=== PATIENT | female | born 1940 | race Caucasian/White ===

== ENCOUNTER 2017-01-16 13:07 | Emergency (ER) | payer MEDICARE, BC ==
[2017-01-16 13:35] VITALS: BP 163/65
--- NOTE | 2017-01-17 07:46 | ER ---
Date of Service: 01/16/2017 SUBJECTIVE: Ms. He presents to the emergency room following a fall. The patient states that she was working in her flower bed when she fell striking the right parietal portion of her head on a rock. The patient states that she did not have a loss of consciousness during this event. The patient states that she is not experiencing any nausea or vomiting. She also denies any injury other than what is isolated to her head. She also does complain of some mild midline cervical spinal pain. PAST MEDICAL HISTORY: 1. Depression. 2. Anxiety. 3. Hypertension. 4. Dyslipidemia. MEDICATIONS: 1. Effexor XR. 2. Diovan/HCTZ. 3. Aspirin. ALLERGIES: 1. TRISHA inhibitors. 2. Adhesives. 3. Cefadroxil. 4. Omnicef. 5. Clarithromycin. 6. Clindamycin. 7. Tricor. 8. Gentamicin. 9. Ibuprofen. 10.Metronidazole. 11.Propoxyphene. 12.Sulfa. 13.Simvastatin. REVIEW OF SYSTEMS: General: No fever or chills. HEENT: Please see history of present illness. Respiratory: No shortness of breath. Cardiac: Denies any substernal chest pain. Abdomen: No abdominal trauma. No nausea, vomiting or diarrhea. Musculoskeletal: No myalgias, arthralgias or extremity trauma. Again, she does complain of some midline cervical spinal pain post fall. NEUROLOGIC: No fainting, blackouts, or lightheadedness. No vision issues. No numbness or tingling in her extremities. PHYSICAL EXAMINATION: General: This is a 76-year-old female patient, who is in no acute distress. Vital Signs: Blood pressure is 163/65, pulse rate is 88, temperature is 36.7, and respiratory rate is 20. Skin: Warm, pink, and dry. HEENT: Head is normocephalic. She does have a several centimeter in diameter contusion/superficial abrasion to her right parietal area of her head. There is no obvious gross bony deformity underlying the injury. There is no crepitus or deformity noted. No head or facial trauma noted. Chest and Abdomen: No chest or abdominal trauma noted. SPINE: She does complain again of some midline cervical spinal pain on palpation. There are no step-offs or deformity noted. No obvious crepitus noted. Neurovascular, circulation, sensation, and motor function are all within normal limits in distal portion of her extremities. Neurologic: II through XII are intact. The patient's speech is fluent. Her gait is within normal limits. RADIOGRAPHIC DATA: CT scan of the patient's brain and C-spine were obtained and both examinations were negative for acute pathology. ASSESSMENT: 1. Closed head injury, status post fall. 2. Cervical spinal sprain. PLAN: The patient will be discharged. Tylenol for discomfort. The patient was advised to ice her head for 10 to 15 minutes every 1 to 2 hours. All questions were answered. MWK: 01/16/2017 18:27:16 MODL: 01/16/2017 22:20:43 /[id number]
== END 2017-01-16 15:25 | disposition home or self-care (01) ==
LOC: VM.ED 13:07
DX: S09.90XA Unspecified injury of head, initial encounter (principal); S16.1XXA Strain of muscle, fascia and tendon at neck level, initial encounter; F41.8 Other specified anxiety disorders; I10 Essential (primary) hypertension; E78.5 Hyperlipidemia, unspecified; Z88.1 Allergy status to other antibiotic agents; Z88.2 Allergy status to sulfonamides; Z88.6 Allergy status to analgesic agent; Z88.8 Allergy status to other drugs, medicaments and biological substances; W06.XXXA Fall from bed, initial encounter
CPT/HCPCS: 70450; 72125; 99284; 99284-GF

== ENCOUNTER 2018-02-17 22:22 | Emergency (ER) | payer MEDICARE, BC ==
--- NOTE | 2018-02-17 23:38 | EDM.PDOC ---
ED HPI GENERAL MEDICAL PROBLEM - General Chief Complaint: Head Injury Stated Complaint: fall on head, knee Time Seen by Provider: 02/17/18 22:30 Source of Information: Reports: Patient History Limitations: Reports: No Limitations - History of Present Illness INITIAL COMMENTS - FREE TEXT/NARRATIVE: Patient was in her garden weeding when she lost her balance falling forward. She hit the front of her head and landed on her left knee. She does have a small cut in the middle of her forehead as well as a skin tear to the left hand. She did not lose consciousness and remembers the entire event. There is complaint of left knee pain. Onset: Today, Sudden Duration: Intermittent Location: Reports: Head, Lower Extremity, Left - Related Data Allergies Allergy/AdvReac Type Severity Reaction Status Date / Time TRISHA Inhibitors Allergy Cough Verified 01/16/17 13:28 adhesive Allergy Cannot Verified 01/16/17 13:28 Remember cefadroxil [Cefadroxil] Allergy Cannot Verified 01/16/17 13:28 Remember cefdinir [From Omnicef] Allergy Cannot Verified 01/16/17 13:28 Remember clarithromycin Allergy Cannot Verified 01/16/17 13:28 Remember clindamycin Allergy Cannot Verified 01/16/17 13:28 Remember fenofibrate nanocrystallized Allergy Cannot Verified 01/16/17 13:28 [From Tricor] Remember fenofibrate,micronized Allergy Cannot Verified 01/16/17 13:28 [From Tricor] Remember gentamicin [Gentamicin] Allergy Cannot Verified 01/16/17 13:28 Remember ibuprofen Allergy Cannot Verified 01/16/17 13:28 Remember metronidazole Allergy Itching Verified 01/16/17 13:28 propoxyphene Allergy Cannot Verified 01/16/17 13:28 Remember Sulfa (Sulfonamide Allergy Cannot Verified 01/16/17 13:28 Antibiotics) Remember simvastatin AdvReac Muscle Verified 01/16/17 13:28 Aches Home Meds: Home Meds Aspirin [Halfprin] 1 tab PO DAILY 05/06/14 [History] Hydrochlorothiazide/Valsartan [Diovan HCTZ 320-12.5 MG] 1 tab PO DAILY 05/06/14 [History] Venlafaxine [Effexor XR] 1 cap PO DAILY 05/06/14 [History] Past Medical History Cardiovascular History: Reports: Hypertension Psychiatric History: Reports: Depression ED ROS GENERAL - Review of Systems Review Of Systems: See Below Constitutional: Reports: No Symptoms HEENT: Reports: No Symptoms Respiratory: Reports: No Symptoms Cardiovascular: Reports: No Symptoms Endocrine: Reports: No Symptoms GI/Abdominal: Reports: No Symptoms : Reports: No Symptoms Musculoskeletal: Reports: Leg Pain Skin: Reports: Wound (skin tear to left hand) Neurological: Reports: No Symptoms Psychiatric: Reports: No Symptoms Hematologic/Lymphatic: Reports: No Symptoms Immunologic: Reports: No Symptoms ED EXAM, HEAD INJURY - Physical Exam Exam: See Below Exam Limited By: No Limitations General Appearance: Alert, WD/WN, No Apparent Distress Head: Atraumatic, Normocephalic Nexus Criteria: No: Posterior, Midline Cervical Tenderness, Evidence of Intoxication, Altered Level of Consciousness, Focal Neurological Deficit, Painful Distraction Injuries Eyes: Bilateral Eye: EOMI, Normal Inspection, PERRL Ears: Normal TMs Nose: Normal Inspection, Normal Mucousa, No Blood Throat/Mouth: Normal Inspection, Normal Lips, Normal Teeth, Normal Gums, Normal Oropharynx, Normal Voice, No Airway Compromise Neck: Non-Tender, Full Range of Motion, Normal Alignment, Normal Inspection Respiratory: No Respiratory Distress, Lungs Clear, Normal Breath Sounds, No Accessory Muscle Use, Chest Non-Tender Cardiovascular: Normal Peripheral Pulses, Regular Rate, Rhythm, No Edema, No Gallop, No JVD, No Murmur, No Rub GI/Abdominal Exam: Normal Bowel Sounds, Soft, Non-Tender, No Organomegaly, No Distention, No Abnormal Bruit, No Mass Extremities: Normal Inspection, Normal Range of Motion, Non-Tender, No Pedal Edema, Normal Capillary Refill, Leg Pain (left knee) 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 As Tested, No Motor/Sensory Deficits, Alert, Normal Mood/Affect, Oriented x 3 Skin: Ecchymosis - [place] Coma Score Best Eye Response (Paige): (4) Open Spontaneously Best Verbal Response ([place]): (5) Oriented Best Motor Response ([place]): (6) Obeys Commands Course - Orders/Labs/Meds Orders: Active Orders 24 hr Category Date Time Status Cervical Spine wo Cont [CT] Stat Exams 02/17/18 22:30 Ordered Head wo Cont [CT] Stat Exams 02/17/18 22:30 Ordered Knee 1V or 2V Lt [CR] Stat Exams 02/17/18 22:30 Ordered Departure - Departure Time of Disposition: 00:08 Disposition: Home, Self-Care 01 Condition: Good Clinical Impression: Fall, Hematoma - Discharge Information Instructions: Fall Prevention in the Home, [id number] Forms: ED Department Discharge Additional Instructions: Follow up with your primary provider regarding the incidental thyroid nodule found on your neck CT. It is 1.6 cm. Liquid skin was applied to your skin tear. Your CT scans of the brain and neck were negative for bleeding or injury. Left knee x-ray was negative for fracture. Be more aware and careful with your positioning when pulling weeds and in general to avoid future falls. Please call us if you have any additional questions or concerns. - Problem List & Annotations (1) Fall SNOMED Code(s): 5154276, [id number] Code(s): W19.XXXA - UNSPECIFIED FALL, INITIAL ENCOUNTER Status: Acute Priority: Low Current Visit: Yes Qualifiers: Encounter type: initial encounter Qualified Code(s): W19.XXXA - Unspecified fall, initial encounter (2) Hematoma SNOMED Code(s): 865889108 Code(s): T14.8XXA - OTHER INJURY OF UNSPECIFIED BODY REGION, INITIAL ENCOUNTER Status: Acute Priority: Low Current Visit: Yes - Problem List Review Problem List Initiated/Reviewed/Updated: Yes - My Orders Last 24 Hours: My Active Orders 02/17/18 22:30 Cervical Spine wo Cont [CT] Stat Head wo Cont [CT] Stat Knee 1V or 2V Lt [CR] Stat - Assessment/Plan Last 24 Hours: My Active Orders 02/17/18 22:30 Cervical Spine wo Cont [CT] Stat Head wo Cont [CT] Stat Knee 1V or 2V Lt [CR] Stat Assessment:: fall hematoma to left hand skin tear Plan: Follow up with your primary provider regarding the incidental thyroid nodule found on your neck CT. It is 1.6 cm. Liquid skin was applied to your skin tear. Your CT scans of the brain and neck were negative for bleeding or injury. Left knee x-ray was negative for fracture. Be more aware and careful with your positioning when pulling weeds and in general to avoid future falls. Please call us if you have any additional questions or concerns.
[2018-02-18 02:47] VITALS: BP 128/54
== END 2018-02-18 00:10 | disposition home or self-care (01) ==
LOC: VM.ED 22:22
DX: S01.81XA Laceration without foreign body of other part of head, initial encounter (principal); S61.412A Laceration without foreign body of left hand, initial encounter; M25.562 Pain in left knee; I10 Essential (primary) hypertension; F32.9 Major depressive disorder, single episode, unspecified; Z88.1 Allergy status to other antibiotic agents; Z91.09 Other allergy status, other than to drugs and biological substances; Z88.8 Allergy status to other drugs, medicaments and biological substances; Z88.6 Allergy status to analgesic agent; Z88.2 Allergy status to sulfonamides; Z79.82 Long term (current) use of aspirin; Z79.899 Other long term (current) drug therapy; W19.XXXA Unspecified fall, initial encounter
CPT/HCPCS: 70450; 72125; 73560-LT; 99284

== ENCOUNTER 2018-03-28 13:20 | Emergency (ER) | payer MEDICARE, BC ==
[2018-03-28 14:06] VITALS: BP 148/77
--- NOTE | 2018-03-28 14:47 | EDM.PDOC ---
ED HPI GENERAL MEDICAL PROBLEM - General Chief Complaint: Skin Complaint Stated Complaint: INCISION IRRITATION Time Seen by Provider: 03/28/18 13:22 Source of Information: Reports: Patient, Family, RN, RN Notes Reviewed History Limitations: Reports: No Limitations - History of Present Illness INITIAL COMMENTS - FREE TEXT/NARRATIVE: Patient presents to the ED at [facility] with concerns of an incisional infection and dehiscence. Patient underwent a lumpectomy and node dissection last week with Dr. Uriel Shah. Patient states the glue seems to have worn off. Onset: Today Onset Date: 03/28/18 - Related Data Allergies Allergy/AdvReac Type Severity Reaction Status Date / Time TRISHA Inhibitors Allergy Cough Verified 03/28/18 14:32 adhesive Allergy Cannot Verified 03/28/18 14:32 Remember cefadroxil [Cefadroxil] Allergy Cannot Verified 03/28/18 14:32 Remember cefdinir [From Omnicef] Allergy Cannot Verified 03/28/18 14:32 Remember clarithromycin Allergy Cannot Verified 03/28/18 14:32 Remember clindamycin Allergy Cannot Verified 03/28/18 14:32 Remember fenofibrate nanocrystallized Allergy Cannot Verified 03/28/18 14:32 [From Tricor] Remember fenofibrate,micronized Allergy Cannot Verified 03/28/18 14:32 [From Tricor] Remember gentamicin [Gentamicin] Allergy Cannot Verified 03/28/18 14:32 Remember ibuprofen Allergy Cannot Verified 03/28/18 14:32 Remember metronidazole Allergy Itching Verified 03/28/18 14:32 propoxyphene Allergy Cannot Verified 03/28/18 14:32 Remember Sulfa (Sulfonamide Allergy Cannot Verified 03/28/18 14:32 Antibiotics) Remember simvastatin AdvReac Muscle Verified 03/28/18 14:32 Aches Home Meds: Home Meds Aspirin [Halfprin] 1 tab PO DAILY 05/06/14 [History] Hydrochlorothiazide/Valsartan [Diovan HCTZ 320-12.5 MG] 1 tab PO DAILY 05/06/14 [History] Venlafaxine [Effexor XR] 1 cap PO DAILY 05/06/14 [History] Doxycycline Hyclate 100 mg PO BID 5 Days #10 capsule 03/28/18 [Rx] Venlafaxine HCl [Venlafaxine ER] 75 mg PO DAILY 03/28/18 [History] Venlafaxine [Effexor XR 24 Hr] 37.5 mg PO DAILY 03/28/18 [History] Past Medical History Cardiovascular History: Reports: Hypertension Psychiatric History: Reports: Depression Oncologic (Cancer) History: Reports: Breast - Past Surgical History Oncologic Surgical History: Reports: Biopsy of Breast, Lumpectomy Social & Family History - Tobacco Use Smoking Status *Q: Current Status Unknown ED ROS GENERAL - Review of Systems Review Of Systems: See Below Constitutional: Denies: Fever, Chills, Weakness Respiratory: Denies: Shortness of Breath, Cough Cardiovascular: Denies: Chest Pain, Palpitations GI/Abdominal: Denies: Abdominal Pain, Nausea, Vomiting Skin: Reports: Wound (4.5cm horizontal incision left axilla) Neurological: Reports: No Symptoms ED EXAM, SKIN/RASH Exam: See Below Exam Limited By: No Limitations General Appearance: Alert, No Apparent Distress Respiratory/Chest: No Respiratory Distress, Lungs Clear, Normal Breath Sounds Cardiovascular: Normal Peripheral Pulses, Regular Rate, Rhythm Neurological: Alert, Oriented Skin: Warm, Dry, Normal Color, Wound/Incision (4.5cm intact incision left axilla ; no drainage, mild erythema; small 0.5 dehiscence distal end) ED SKIN PROCEDURES - Laceration/Wound Repair Left Axillary Lac/Wound length In cm: 4.5 Appearance: Superficial, Clean Closed with: Dermabond Sterile Dressing Applied: Provider Complications: No Course - Vital Signs Last Recorded V/S: Last Vital Signs Temp 36.8 C 03/28/18 13:30 Pulse 80 03/28/18 13:30 Resp 16 03/28/18 13:30 BP 148/77 H 03/28/18 13:30 Pulse Ox 95 03/28/18 13:30 Departure - Departure Time of Disposition: 14:48 Disposition: Home, Self-Care 01 Condition: Good Clinical Impression: Wound dehiscence, surgical Qualifiers: Encounter type: initial encounter Qualified Code(s): T81.31XA - Disruption of external operation (surgical) wound, not elsewhere classified, initial encounter - Discharge Information *PRESCRIPTION DRUG MONITORING PROGRAM REVIEWED*: Not Applicable *COPY OF PRESCRIPTION DRUG MONITORING REPORT IN PATIENT LI: Not Applicable Prescriptions: Doxycycline Hyclate 100 mg PO BID 5 Days #10 capsule Instructions: Wound Dehiscence Referrals: Lori Richards NP [Primary Care Provider] - Additional Instructions: 1. Stay well hydrated and rest 2. Take antibiotics for the full coarse 3. Keep area clean and dry 4. Take band aid off tomorrow 5. See Dr. Shah as scheduled - Problem List Review Problem List Initiated/Reviewed/Updated: Yes - Assessment/Plan Assessment:: Wound dehiscence Plan: Dermabond applied without problems. Patient will be started on abx therapy for coverage. Patient will f/u with surgeon this week for a recheck.
[2018-03-28] MEDS ORDERED: Take Home: Doxycycline 100 MG Tab, 4 Tab Pack PO ONE (14:49)
== END 2018-03-28 15:03 | disposition home or self-care (01) ==
LOC: VM.ED 13:20
DX: T81.31XA Disruption of external operation (surgical) wound, not elsewhere classified, initial encounter (principal); F32.9 Major depressive disorder, single episode, unspecified; Z79.82 Long term (current) use of aspirin; Z79.899 Other long term (current) drug therapy; Z88.8 Allergy status to other drugs, medicaments and biological substances; Z88.2 Allergy status to sulfonamides
CPT/HCPCS: 12002; 12020; 99283; A9270